=== PATIENT | female | born 1970 | race Caucasian/White ===

== ENCOUNTER 2017-01-04 19:28 | Emergency (ER) | payer BC ==
[~2017-01-04] VITALS: Ht 172.7 cm; Wt 113.4 kg
[~2017-01-04 19:28] MED LIST: AC500T; CEPH-507 PO; CIPR-225 PO; CYCL5TAB11 PO; DIPH50CA; DOCU-143 PO; IBUP-30 PO; NAPR250T34 PO; NYST1000 PO; NYSTATIN LIQUID; ONDA4TAB11 PO; PHEN-639 PO; PROM12.59 PO; SULF-222 PO; SULF1TAB35 PO
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
[2017-01-04 20:10] VITALS: BP 153/99
== END 2017-01-04 20:20 | disposition home or self-care (01) ==
LOC: EDUNIT# 19:28 → ER 19:32
DX: S81.812A Laceration without foreign body, left lower leg, initial encounter (principal); J45.909 Unspecified asthma, uncomplicated; W25.XXXA Contact with sharp glass, initial encounter; Y93.01 Activity, walking, marching and hiking

== ENCOUNTER 2022-08-01 18:27 | Emergency (ER) | payer BC, OTHER ==
[~2022-08-01] VITALS: Ht 175 cm; Wt 124.0 kg
[~2022-08-01 18:27] MED LIST changes: +PROM12.511 PO; -PROM12.59 PO; -SULF1TAB35 PO; +SULF1TAB38 PO
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
[2022-08-01 18:53] LABS: BASOPHILS # (AUTO) 0.1 10^3/uL (0.0-0.1); BASOPHILS % (AUTO) 0 % (0-10); EOSINOPHILS # (AUTO) 0.1 10^3/uL (0.0-0.3); EOSINOPHILS % (AUTO) 1 % (0-10); HEMATOCRIT 47 % (35-52); HEMOGLOBIN 15.4 g/dL (11.5-16.0); LYMPHOCYTES # (AUTO) 5.6 10^3/uL (1.0-4.0); LYMPHOCYTES % (AUTO) 45 % (12-44); MEAN CORPUSCULAR HEMOGLOBIN 29 pg (25-34); MEAN CORPUSCULAR HGB CONC 33 g/dL (32-36); MEAN CORPUSCULAR VOLUME 87 fL (80-99); MEAN PLATELET VOLUME 11.2 fL (9.0-12.2); MONOCYTES # (AUTO) 0.8 10^3/uL (0.0-1.0); MONOCYTES % (AUTO) 7 % (0-12); NEUTROPHILS # (AUTO) 5.8 10^3/uL (1.8-7.8); NEUTROPHILS % (AUTO) 47 % (42-75); PLATELET COUNT 269 10^3/uL (130-400); WHITE BLOOD COUNT 12.5 10^3/uL (4.3-11.0)
[2022-08-01 18:58] LABS: ALBUMIN 3.9 GM/DL (3.2-4.5); POTASSIUM 4.1 MMOL/L (3.6-5.0)
[2022-08-01 18:59] LABS: CALCIUM 9.1 MG/DL (8.5-10.1)
[2022-08-01 19:00] LABS: TOTAL PROTEIN 7.5 GM/DL (6.4-8.2)
[2022-08-01 19:02] LABS: BILIRUBIN,TOTAL 0.6 MG/DL (0.1-1.0)
[2022-08-01 19:04] LABS: CREATININE SERUM 0.74 MG/DL (0.60-1.30)
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
[2022-08-01] MEDS ORDERED: IOHEXOL 350 MG/ML 100 ML (OMNIPAQUE 350) VIAL IV ONE (19:15)
[2022-08-01] MEDS ORDERED: NS 100 ML (IVPB) BAG IV ONE (19:15)
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
[2022-08-01] MEDS ORDERED: RX-CYCLOBENZAPRINE 10 MG (FLEXERIL) TAB PPK#3 PO STA (20:01)
[2022-08-01] MEDS ORDERED: ACHD5005 PO (20:06)
[2022-08-01] MEDS ORDERED: CYCL10TA25 PO (20:06)
[2022-08-01 20:32] VITALS: BP 138/96
== END 2022-08-01 20:32 | disposition home or self-care (01) ==
LOC: EDUNIT# 18:27 → ER 18:29
DX: S82.141A Displaced bicondylar fracture of right tibia, initial encounter for closed fracture (principal); R07.89 Other chest pain; M25.511 Pain in right shoulder; M54.2 Cervicalgia; F17.210 Nicotine dependence, cigarettes, uncomplicated; E66.9 Obesity, unspecified; Z68.41 Body mass index [BMI] 40.0-44.9, adult; V43.52XA Car driver injured in collision with other type car in traffic accident, initial encounter; Y92.410 Unspecified street and highway as the place of occurrence of the external cause
CPT/HCPCS: 27752; 36415; 71045; 71260; 72125; 72128; 72131; 72170; 73030; 73562; 74177; 80053; 82150; 83690; 85025

== ENCOUNTER → 2022-09-12 | Outpatient (CLI) | payer MEDICAID, OTHER ==
[~2022-09-12] MED LIST changes: +ACHD5005 PO; +CYCL10TA25 PO
--- NOTE | 2022-09-12 17:51 | Diagnostic Imaging Report ---
INDICATION: Right knee pain AP, oblique and lateral views of the right knee are obtained with comparison made to the study of 08/01/2022. There may be minimal increase in depression of the medial tibial plateau fracture fragment. There is mild offset at the articular surface. No significant hemarthrosis is identified. No new fracture or malalignment is seen. IMPRESSION: Mild overall increase in depression of the medial tibial plateau fracture fragment without other significant change or complication. Dictated by: Dictated on workstation # [id number]
== END ==
LOC: ORTHO 14:40
PROVIDERS: ATTEND Orthopaedic Surgery
DX: S82.141A Displaced bicondylar fracture of right tibia, initial encounter for closed fracture (principal); X58.XXXA Exposure to other specified factors, initial encounter
CPT/HCPCS: 73562; 99203

== ENCOUNTER → 2022-10-09 | Outpatient (CLI) | payer OTHER ==
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
== END ==
LOC: ORTHO 11:08
PROVIDERS: ATTEND Orthopaedic Surgery
DX: S82.121D Displaced fracture of lateral condyle of right tibia, subsequent encounter for closed fracture with routine healing (principal); X58.XXXD Exposure to other specified factors, subsequent encounter
CPT/HCPCS: 73560; 99213